=== PATIENT | male | born 1980 | race African-American/Black ===

== ENCOUNTER 2017-03-20 14:09 | Emergency (ER) | payer BC ==
[2017-03-20] MEDS ORDERED: Lidocaine Viscous Sol 2% 15 ml UD Cup ONE (14:41)
[2017-03-20] MEDS ORDERED: Mag-Al Plus 1200 MG/1200 MG/120 MG/30 ML UDCUP ONE (14:41)
[2017-03-20 15:03] LABS: ALT (SGPT) 35 U/L (0-55); AST (SGOT) 23 U/L (5-34); Albumin 3.6 g/dL (3.5-5.0); Alkaline Phosphatase 101 U/L (40-150); Anion Gap 15 mmol/L (10-20); BUN (Urea Nitrogen) 10 mg/dL (8.9-20.6); Bilirubin, Total 0.4 mg/dL (0.2-1.2); Calc. Creatinine Clearance 0 mL/min (70-130); Calcium 8.8 mg/dL (7.8-10.44); Carbon Dioxide 23 mmol/L (22-29); Chloride 105 mmol/L (98-107); Estimated GFR-MDRD Greater than 90; Globulin 3.7 g/dL (2.4-3.5); Glucose 112 mg/dL (70-105); Potassium 3.7 mmol/L (3.5-5.1); Protein, Total 7.3 g/dL (6.0-8.3); Sodium 139 mmol/L (136-145)
[2017-03-20 15:05] LABS: CKMB 1.3 ng/mL (0-6.6); Troponin I Less than 0.010 ng/mL (< 0.028)
[2017-03-20 15:24] LABS: Hemoglobin 13.2 g/dL (14.0-18.0); Mean Corpuscular Volume 84.9 fl (80.0-94.0); Mean Platelet Volume 10.9 fL (7.4-10.4); Platelet Count 219 thou/uL (130-400); RBC Distribution Width 12.2 % (11.5-14.5); Red Blood Cell (RBC) Count 4.71 mill/uL (4.70-6.10)
[2017-03-20 15:29] LABS: Eosinophils 1 % (0-10); Lymphocytes 35 % (21-51); MDiff Complete? YES; Monocytes 4 % (0-10); Neutrophil 59 % (42-75); PLT Morphology Comment Appears Adequate; RBC Morphology Normal
--- NOTE | 2017-03-20 15:55 | RAD ---
PORTABLE CHEST 1 VIEW: Date: 03/20/17 Time: 1450 hours HISTORY: Chest pain. FINDINGS: The heart size is normal. No focal areas of consolidation, pneumothorax, or pleural effusions are se en. IMPRESSION: No radiographic evidence of acute cardiopulmonary process. POS: [facility]
== END 2017-03-20 15:49 | disposition home or self-care (01) ==
LOC: NAV ERS 14:09
DX: K21.0 Gastro-esophageal reflux disease with esophagitis (principal); Z79.2 Long term (current) use of antibiotics
CPT/HCPCS: 71010; 80053; 82553; 84484; 85025; 85379; 93005

== ENCOUNTER 2024-10-08 03:30 | Emergency (ER) | payer SELFPAY ==
[2024-10-08 04:00] LABS: #Basophils 0.1 thou/uL (0.0-0.2); #Eosinophils 0.1 thou/uL (0.0-0.7); #Lymphocytes 3.3 thou/uL (1.20-3.40); #Monocytes 0.5 thou/uL (0.11-0.59); #Neutrophils 3.5 thou/uL (1.40-6.50); %Basophils 0.7 % (0.0-1.0); %Eosinophils 1.3 % (0.0-10.0); %Lymphocytes 44.8 % (21.0-51.0); %Monocytes 6.8 % (0.0-10.0); %Neutrophils 46.4 % (42.0-75.0); Hematocrit 38.5 % (42.0-52.0); Hemoglobin 12.9 g/dL (14.0-18.0); Mean Corpuscular HGB CONC 33.5 g/dL (32.0-36.0); Mean Corpuscular Hemoglobin 28.7 pg (27.0-31.0); Mean Corpuscular Volume 85.7 fl (78.0-98.0); Mean Platelet Volume 9.6 fL (7.4-10.4); Platelet Count 258 10x3/uL (130-400); RBC Distribution Width 11.5 % (11.5-14.5); White Blood Cell (WBC) Count 7.4 10x3/uL (4.8-10.8)
[2024-10-08 04:13] LABS: ALT (SGPT) 31 U/L (8-55); AST (SGOT) 17 U/L (5-34); Albumin 3.5 g/dL (3.5-5.0); Alkaline Phosphatase 101 U/L (40-110); Anion Gap 12 mmol/L (10-20); BUN (Urea Nitrogen) 11 mg/dL (8.9-20.6); Bilirubin, Total 0.3 mg/dL (0.2-1.2); Calc. Creatinine Clearance 0 mL/min (70-130); Calcium 8.9 mg/dL (7.8-10.44); Carbon Dioxide 26 mmol/L (22-29); Chloride 105 mmol/L (98-107); Estimated GFR 94; Globulin 3.5 g/dL (2.4-3.5); Glucose 86 mg/dL (70-105); Potassium 3.6 mmol/L (3.5-5.1); Sodium 139 mmol/L (136-145); Troponin I Less than 0.010 ng/mL (< 0.028)
[2024-10-08] MEDS ORDERED: Acetaminophen 500 MG TAB ONE (04:20)
[2024-10-08] MEDS ORDERED: Aspirin Chewable 81 MG TAB ONE (04:20)
== END 2024-10-08 04:45 | disposition home or self-care (01) ==
LOC: NAV ERS 03:30
DX: R07.89 Other chest pain (principal); I10 Essential (primary) hypertension
CPT/HCPCS: 71045; 80053; 84484; 85025; 93005

== ENCOUNTER 2024-11-08 13:41 | Outpatient (CLI) | payer OTHER | END 2024-11-08 13:42 | disposition home or self-care (01) | LOC: NAV RAD 13:41 | PROVIDERS: ATTEND Family Medicine | DX: M25.561 Pain in right knee (principal); M17.11 Unilateral primary osteoarthritis, right knee ==